=== PATIENT | female | born 1995 | race Caucasian/White ===

== ENCOUNTER → 2022-11-08 | Outpatient (CLI) | payer MEDICAID, SELFPAY ==
[2022-11-08 16:17] LABS: Absolute Neutrophil Count 6.8 X10^3/uL (2.0-7.7); Basophil# 0.04 X10^3/uL; Basophil% 0.4 % (0-1); Eosinophil# 0.03 X10^3/uL; Eosinophils% 0.3 % (0-5); Hematocrit 39.1 % (37-47); Mean Corp Hgb Conc 33.2 g/dL (32-36); Mean Corpuscular Hgb 29.5 pg (27.0-32.0); Mean Corpuscular Volume 88.9 fL (81-99); Mean Platelet Vol. 10.5 fl (6.2-12.0); Monocyte# 0.47 X10^3/uL; Monocyte% 4.9 % (0-10); NRBC Flagged by Analyzer 0 % (0-5); Neutrophil # 6.81 X10^3/uL (2.7-7.7); Neutrophil % 71.1 % (47-70); Platelet Count 279 K/mm3 (150-450); RBC Distribution Width CV 13.5 % (11.6-14.6); RBC Distribution Width SD 43.9 fl (35.1-43.9); White Blood Count 9.6 K/mm3 (4.4-11.0)
[2022-11-08 17:45] LABS: HIV - WCH Non-Reactive (Nonreactive); Hepatitis B Surface Antigen Non-Reactive (Nonreactive); Hepatitis C Antibody Non-Reactive (Nonreactive); Rubella IgG Non-Reactive (Nonreactive); Syphilis Antibodies Non-reactive
[2022-11-10 09:22] LABS: V-Zoster IgG (Immunity) < 135 index (Immune >165)
== END | disposition home or self-care (01) ==
LOC: WOBLAB 15:17
PROVIDERS: Visit Provider Obstetrics & Gynecology
DX: Z34.82 Encounter for supervision of other normal pregnancy, second trimester (principal)
CPT/HCPCS: 36415; 85025; 86703; 86762; 86780; 86787; 86803; 87086; 87088; 87340

== ENCOUNTER → 2022-12-03 | Outpatient (CLI) | payer MEDICAID, SELFPAY ==
--- NOTE | 2022-12-03 12:29 | US_ITS ---
STUDY: SECOND AND THIRD TRIMESTER OBSTETRICAL ULTRASOUND REASON FOR EXAM: Female, 26 years old LMP: 07/17/2022. TECHNIQUE: Transabdominal TECHNICAL QUALITY: Adequate. PRIOR ULTRASOUND: None. FINDINGS: There is a single intrauterine fetus. The fetus is in a breech presentation. There is demonstrated cardiac activity with a heart rate of 150 bpm. There is a normal amniotic fluid volume. The largest amniotic fluid pocket measures 5.3 cm. The amniotic fluid index (IVETTE) is within normal limits. The placenta is posterior in location and is not low lying. There are Grade 0 placental changes. The cervix measures 4.7 cm in length. The bilateral adnexal regions are normal. BIOMETRY: BPD: 4.41 cm: 19 weeks, 2 days HC: 17.2 cm: 19 weeks, 5 days AC: 14.93 cm: 20 weeks, 1 days FL: 3.11 cm: 19 weeks, 4 days CI: 72% FL/BPD: 71% FL/HC: FL/AC: 21% HC/AC: 1.15 age by current US: 19 weeks, 4 days. TIFFANY by current US: 04/25/2023. Estimated weight: 319 grams, +/- 48 grams, 46 %. Age by LMP: 19 weeks, 6 days. TIFFANY by LMP: 04/23/2023. ANATOMY: Gender: Female Cranium: Normal lateral ventricles. Normal choroid plexus. Normal cerebellum. Normal cisterna magna. Normal face, nose and lips. Chest: Normal 4-chamber heart. Abdomen/Pelvis: Normal diaphragm. Normal stomach. Normal abdominal wall. Normal cord insertion. Normal 3 vessel cord. Normal kidneys. Normal bladder. Spine: Normal cervical spine. Normal thoracic spine. Normal lumbar spine. Normal sacrum. Extremities: Normal bilateral upper extremities. Normal bilateral lower extremities. US/OB Anatomy Scan IMPRESSION: Single live uterine gestation with a mean gestational age of 19 weeks and 4 days. Electronically Signed: Junior Rosales MD at 14:56 EST ,
== END | disposition home or self-care (01) ==
LOC: OPUS 12:27 → US 12:33
PROVIDERS: Referring Provider Student in an Organized Health Care Education/Training Program; Visit Provider Student in an Organized Health Care Education/Training Program
DX: Z34.82 Encounter for supervision of other normal pregnancy, second trimester (principal)
CPT/HCPCS: 76805

== ENCOUNTER → 2023-01-10 | Outpatient (CLI) | payer MEDICAID, SELFPAY ==
[2023-01-10 16:35] LABS: Hematocrit 37.4 % (37-47); Hemoglobin 12.3 g/dL (12.0-15.0); Mean Corp Hgb Conc 32.9 g/dL (32-36); Mean Corpuscular Hgb 30.3 pg (27.0-32.0); Mean Corpuscular Volume 92.1 fL (81-99); Mean Platelet Vol. 10.6 fl (6.2-12.0); Platelet Count 287 K/mm3 (150-450); RBC Distribution Width CV 13.6 % (11.6-14.6); RBC Distribution Width SD 45.5 fl (35.1-43.9); Red Blood Count 4.06 M/mm3 (4.2-5.4); White Blood Count 11.1 K/mm3 (4.4-11.0)
[2023-01-10 17:06] LABS: Glucose Challenge Gest 1H 50g 100 mg/dL (70-140)
[2023-01-10 17:26] LABS: Syphilis Antibodies Non-reactive
== END | disposition home or self-care (01) ==
LOC: WOBLAB 15:14
PROVIDERS: Visit Provider Obstetrics & Gynecology
DX: Z34.82 Encounter for supervision of other normal pregnancy, second trimester (principal)
CPT/HCPCS: 36415; 82950; 85027; 86780

== ENCOUNTER → 2023-04-01 | Outpatient (CLI) | payer MEDICAID, SELFPAY ==
[2023-04-01 15:50] LABS: Hematocrit 34.4 % (37-47); Hemoglobin 11.2 g/dL (12.0-15.0); Mean Corp Hgb Conc 32.6 g/dL (32-36); Mean Corpuscular Hgb 29.3 pg (27.0-32.0); Mean Corpuscular Volume 90.1 fL (81-99); Mean Platelet Vol. 10.5 fl (6.2-12.0); Platelet Count 286 K/mm3 (150-450); RBC Distribution Width CV 12.5 % (11.6-14.6); RBC Distribution Width SD 41.1 fl (35.1-43.9); Red Blood Count 3.82 M/mm3 (4.2-5.4); White Blood Count 8.5 K/mm3 (4.4-11.0)
== END | disposition home or self-care (01) ==
LOC: WOBLAB 15:08
PROVIDERS: Visit Provider Obstetrics & Gynecology
DX: Z34.83 Encounter for supervision of other normal pregnancy, third trimester (principal); Z36.85 Encounter for antenatal screening for Streptococcus B
CPT/HCPCS: 36415; 85027; 87077; 87081

== ENCOUNTER 2023-05-01 07:03 | Inpatient (IN) | payer MEDICAID, SELFPAY ==
[2023-05-01] VITALS (36 sets, daily range): BP systolic 90–120; BP diastolic 51–79; PULSE 51–208; TEMP 36.1–36.8; O2SAT 81–100; BMI 27.3
--- NOTE | 2023-05-01 07:29 | PCM.HP.BLA ---
History and Physical Date of Admission: 05/01/23 Chief complaint: Induction of labor at term History present illness: 27-year-old G2, P1 at 41 weeks and 1 day with TIFFANY 04/23/2023 arrives for induction of labor at term. Denies headache, vision changes, chest pain, shortness of breath, nausea vomit, right upper quadrant pain. Obstetric history: G1: 41-week male 7 pounds 3 ounces G2: Current Past medical history: None Medications: vitamin Past surgical history: None Allergies: No known drug allergies Social history: Denies smoking, alcohol use, drug use Family history: Denies history DVT or PE Review of systems: Besides above pertinent positives a full review of systems was performed and found to be negative Physical exam: Vitals: Pulse 71 SPO2 100% on room air General: Normal-appearing no acute distress HEENT: Normocephalic atraumatic no cervical of adenopathy Cardiac/respiratory: No use of accessory muscles, nonlabored breathing Abdomen: Soft, nontender, gravid Extremities: No peripheral edema normal peripheral pulses Psych: Normal affect and demeanor nonpressured speech Labs: Pending Assessment and plan: 27-year-old G2, P1 at 41 weeks and 1 day for induction of labor at term Admit labor and delivery CEFM GBS negative Cytotec 25 mcg vaginally every 4 Routine orders
[2023-05-01] MEDS: 0.9% Saline Lock 10 ML Syringe IV ×2 (08:20→16:50)
[2023-05-01] MEDS: miSOPROStol 25 MCG TABLET VAGINAL ×2 (08:27→12:44)
[2023-05-01 08:34] LABS: Absolute Lymphocyte Count 2.32 X10^3/uL (0.83-4.51); Absolute Neutrophil Count 5.1 X10^3/uL (2.0-7.7); Basophil# 0.04 X10^3/uL; Basophil% 0.5 % (0-1); Eosinophil# 0.04 X10^3/uL; Eosinophils% 0.5 % (0-5); Hematocrit 33.3 % (37-47); Lymphocyte # 2.32 X10^3/ul (0.83-4.51); Lymphocyte % 28.9 % (19-41); Mean Corpuscular Hgb 28.5 pg (27.0-32.0); Mean Corpuscular Volume 86.3 fL (81-99); Mean Platelet Vol. 10.9 fl (6.2-12.0); Monocyte# 0.53 X10^3/uL; Monocyte% 6.6 % (0-10); NRBC Flagged by Analyzer 0 % (0-5); Neutrophil # 5.07 X10^3/uL (2.7-7.7); Neutrophil % 63.3 % (47-70); Platelet Count 255 K/mm3 (150-450); RBC Distribution Width CV 13.2 % (11.6-14.6); Red Blood Count 3.86 M/mm3 (4.2-5.4)
[2023-05-01 09:18] LABS: Syphilis Antibodies Non-reactive
--- NOTE | 2023-05-01 12:35 | PN.OBGYN_ITS ---
Subjective Subjective Patient feels some cramping with contractions otherwise no complaints Objective Data Objective Data Vital Signs: Vital Signs Temp Pulse BP Pulse Ox 98.2 F 75 105/69 100 05/01/23 08:47 05/01/23 09:58 05/01/23 09:58 05/01/23 07:26 Weight: 169 lb 9.6 oz Body Mass Index (BMI) 27.3 Lab / Micro Data 05/01/23 07:50 Labs: Laboratory Results - last 24 hr 05/01/23 07:50: WBC 8.0, RBC 3.86 L, Hgb 11.0 L, Hct 33.3 L, MCV 86.3, MCH 28.5, MCHC 33.0, RDW Std Deviation 41.0, RDW Coeff of Kathi 13.2, Plt Count 255, MPV 10.9, Immature Gran % (Auto) 0.200, Neut % (Auto) 63.3, Lymph % (Auto) 28.9, [place] % (Auto) 6.6, Eos % (Auto) 0.5, Baso % (Auto) 0.5, Absolute Neuts (auto) 5.1, Absolute Lymphs (auto) 2.32, Nucleated RBC % 0, Syphilis Total Ab Non- reactive, Blood Type A POSITIVE, Antibody Screen NEGATIVE Physical Exam Const alert, oriented x3, no apparent distress, average body habitus, healthy appearing and well nourished HEENT normocephalic and moist oral mucous membranes Eyes PERRL Neck full ROM Resp normal respiratory effort, no retractions and no use of accessory muscles GI GI Narrative: Soft, nontender, gravid Narrative: Cervical exam: /-3. AROM clear fluid. FSE attempted to be placed Extremity normal to inspection, full ROM and no clubbing, cyanosis or edema Neuro moves all extremities and no focal motor deficits Psych mental status grossly normal, affect normal, speech normal and activity/motor b ehavior normal Assessment & Plan (1) : PLAN: Patient seen and examined. Status post first dose of Cytotec. Cervical exam as above. Educated patient on AROM, patient states understanding wish to proceed. AROM scant clear fluid. We will proceed with next dose of Cytotec and reevaluate. Educated patient and partner on plan for induction, all questions answered
[2023-05-01] MEDS: Oxytocin 15 Units/NS 250ml 15 UNITS/250 ML IV.SOLN 2 UNITS IV (16:50)
[2023-05-01] MEDS: Lactated Ringers 1,000 ML 50 ML IV (16:50)
[2023-05-01] MEDS: LACTATED RINGERS 500 ML 999 ML IV (17:06)
[2023-05-01] MEDS: fentaNYL-bupivacaine (epidural) 100 ML BAG EPIDURAL (19:31)
[2023-05-01] MEDS: Lactated Ringers 1,000 ML 200 ML IV (22:14)
--- NOTE | 2023-05-01 23:06 | EX.PCM.OBRPT ---
Vaginal Delivery Findings Description of Procedure: Normal spontaneous vaginal delivery of a viable female infant, vertex KAY. Head and shoulders delivered with ease. Cord clamped and cut. Baby handed off to patient. Placenta delivered via cord traction and fundal massage intact. IV oxytocin initiated per protocol. First-degree midline perineal laceration noted and repaired in typical fashion. EBL 300 cc Apgars 8/9
[2023-05-01] MEDS: Oxytocin 15 Units/NS 250ml 15 UNITS/250 ML IV.SOLN 83 UNITS IV (23:26)
[2023-05-02] VITALS (12 sets, daily range): BP systolic 92–109; BP diastolic 55–73; PULSE 56–86; RESP 15–16; TEMP 36.6–37.2; O2SAT 80–98
--- NOTE | 2023-05-02 08:13 | PN.OBGYN_ITS ---
Subjective Subjective No overnight complaints Objective Data Objective Data Vital Signs: Vital Signs Temp Pulse Resp BP Pulse Ox O2 Del Method 98.3 F 68 16 103/55 L 97 Room Air 05/02/23 03:15 05/02/23 03:15 05/02/23 03:15 05/02/23 03:15 05/02/23 03:15 05/02/23 03:15 Oxygen Delivery Method Room Air Weight: 169 lb 9.6 oz Body Mass Index (BMI) 27.3 Intake & Output: Intake and Output for Last 24 Hours 04/30/23 05/01/23 05/02/23 23:59 23:59 23:59 Intake Total 1697.83 / 1697.83 Output Total 300 / 300 Balance 1397.83 / 1397.83 Lab / Micro Data 05/01/23 07:50 Labs: Laboratory Results - last 24 hr 05/01/23 07:50: WBC 8.0, RBC 3.86 L, Hgb 11.0 L, Hct 33.3 L, MCV 86.3, MCH 28.5, MCHC 33.0, RDW Std Deviation 41.0, RDW Coeff of Kathi 13.2, Plt Count 255, MPV 10.9, Immature Gran % (Auto) 0.200, Neut % (Auto) 63.3, Lymph % (Auto) 28.9, [place] % (Auto) 6.6, Eos % (Auto) 0.5, Baso % (Auto) 0.5, Absolute Neuts (auto) 5.1, Absolute Lymphs (auto) 2.32, Nucleated RBC % 0, Syphilis Total Ab Non- reactive, Blood Type A POSITIVE, Antibody Screen NEGATIVE Physical Exam Const alert, oriented x3, no apparent distress, average body habitus, healthy appearing and well nourished HEENT normocephalic and moist oral mucous membranes Eyes PERRL Neck full ROM Resp normal respiratory effort, no retractions and no use of accessory muscles GI GI Narrative: Soft, nontender, uterus firm and below umbilicus Extremity normal to inspection and full ROM Neuro moves all extremities and no focal motor deficits Psych mental status grossly normal, affect normal, speech normal and activity/motor behavior normal Assessment & Plan (1) Vaginal delivery: PLAN: day 1. Breast-feeding. Pain well controlled. Likely discharge home tomorrow
[2023-05-02] MEDS: Acetaminophen 500 MG Tablet 1000 MG PO (12:55)
--- NOTE | 2023-05-02 15:53 | CASEMGMT ---
Social work Labor and Delivery Unit. Sw completed chart review and acknowledges social work consult received. - Sw presented to bedside and met with mother of baby (MOB- Aniya) and father of baby (FOB- Talha). - Sw completed [place] Depression Screen with MOB, her score was a 1. - Sw provided education and support. - Full psychosocial assessment to be entered at later date. - Per sw, no ongoing concerns, ok for MOB and baby to be discharged when medically ready. Mary Gray, FLIGHT ENGINEER, CENTRIFUGAL CASTING MACHINE TENDER
--- NOTE | 2023-05-02 16:28 | NURSING ---
patient educated to MMR and offered vaccination at this time. VIS provided. Patient refuses MMR at this time.
[2023-05-03 01:20] VITALS: BP 96/56; PULSE 60; PULSE 63; RESP 14; O2SAT 97
--- NOTE | 2023-05-03 02:50 | DS.PCM_ITS ---
Discharge Summary Date of Admission: 05/01/23 Date of Discharge: 05/03/23 Summary: Patient arrived on 05/01/2023 for induction of labor at term. Subsequently delivered on 05/01/2023 vaginally. Routine recovery. Discharged home on 05/03/2023 Meaningful Use Info Meaningful Use Diagnoses (Choose all that apply): None applicable Discharge Plan Admission Admit Date/Time: 05/01/23 07:03 Primary Reason for Your Visit: Induction of labor Attending Provider: Ace Nicholas Primary Care Provider: Care Physician,Lou Primary Instructions Additional Instructions / Restrictions: Regular diet. Weightbearing as tolerated. Okay to shower. No intercourse for 6 to 8 weeks. Call if fevers, chills, chest pain, shortness of breath. Follow- up 4 to 6 weeks Discharge Orders/Prescriptions Prescriptions: No Action [id number] 1 mg tablet PO DAILY Referrals / Follow Up: Care Physician,No Primary [Primary Care Provider] - Disposition Disposition (needs filled in before D/C Order can be placed): Home, Self Care
--- NOTE | 2023-05-03 02:51 | PN.OBGYN_ITS ---
Subjective Subjective Resting comfortably in bed Objective Data Objective Data Vital Signs: Vital Signs Temp Pulse Resp BP Pulse Ox O2 Del Method 98.9 F 63 14 96/56 L 97 Room Air 05/02/23 19:51 05/03/23 01:20 05/03/23 01:20 05/03/23 01:20 05/03/23 01:20 05/03/23 01:20 Oxygen Delivery Method Room Air Weight: 169 lb 9.6 oz Body Mass Index (BMI) 27.3 Intake & Output: Intake and Output for Last 24 Hours 05/01/23 05/02/23 05/03/23 23:59 23:59 23:59 Intake Total 1697.83 / 1697.83 250 / 250 Output Total 300 / 300 400 / 400 Balance 1397.83 / 1397.83 -150 / -150 Lab / Micro Data 05/01/23 07:50 Physical Exam Const no apparent distress, average body habitus, healthy appearing and well nourished HEENT normocephalic Resp normal respiratory effort, no retractions and no use of accessory muscles Extremity normal to inspection and no clubbing, cyanosis or edema Neuro no focal motor deficits Assessment & Plan (1) Vaginal delivery: PLAN: day 2. Breast-feeding. Pain well controlled. Okay to discharge home today if okay with pattern hanger
[2023-05-03 08:05] VITALS: BP 99/62; PULSE 68
[2023-05-03 08:09] VITALS: BP 99/62; PULSE 68; RESP 16; TEMP 36.9; O2SAT 100
--- NOTE | 2023-05-05 10:53 | CASEMGMT ---
Social Work Assessment Labor and Delivery Unit Patient Address: [address] [place] [address] Phone number: [phone] Date of Referral: 05/02/23 Time of Referral:? 0830 Referred By: Need for social work consult identified by nursing staff due to maternal history of anxiety. Date of Intervention: ??05/02/23 Time of Intervention:? 1320 Reason for Referral:? maternal history of anxiety Sw completed chart review and acknowledges social work consult due to anxiety. Sw presented to bedside and introduced self to mother of baby (ANNA- Aniya) and father of baby (FOB- Talha) and explained sw role during MOB admission in Labor and Delivery. History obtained from: medical records and mother of baby ANNA and FABIAN. ??? Household composition: Currently residing at the family home are ANNA, FABIAN, older son Silvio and now baby girl, Tamela. Patient's parent/guardian status:?Parents report that they met through mutual friends and have been together for 6 years. While meeting with MOB privately she denied any domestic violence history or intimate partner violence. Medical History: This is MOB second and delivery. Her first baby was born 3 years ago. ANNA received routine care with [facility] during . ANNA delivered baby girl, Tamela Sanchez on 05/01/23 who weighed 7lb 2oz, her apgars were 8 and 9. NO medical issues or concerns at this time. ? Educational Status:? Both parents completed high school, ANNA has an associates degree in [employer], FABIAN went to EMT school. Financial Status: Both parents are gainfully employed outside of the home. FOSallie is an EMT for [employer], ANNA was previously a [employer] but she is going to be switching her career now that baby has been born to a job working from home. Supplies:?? ANNA states that she has been able to obtain all necessary baby items including safe sleep space, car seat, clothes, diapers, wipes and a breast pump. Childcare/Caregiver(s):? ANNA reports that she will be will be the primary caregiver to baby, when they need help with childcare they have several aunts that will be able to help out. Transportation:?Both parents have drivers license and have dependable transportation. No transportation barriers at this time. ? Programs/Agencies Involved: ANNA denies linkage to any resources or community supports at this time aside from [employer] insurance. . Sw provided information on Help Me Grow and the benefits that Help Me Grow can provide to moms and babies. Children Services/Legal Issues:?No history with Children Services reported, no concerns to warrant referral at this time. ?? Behavioral Health Issues: ??Mental Health History:??FABIAN states that he has been diagnosed with PTSD, anxiety and depression. He is connected to counseling supports that he meets with regularly. Sw provided education to FABIAN on fathers and their experiences with baby blues/ depression following the new of a baby. FABIAN expressed understanding. ANNA stated that she has been diagnosed with anxiety. ANNA is not prescribed medications at this time but is also connected to an outpatient therapist that she can talk to as often as necessary. Sw assessed for self harm, MOB denies current or former SI or self harm. Sw met with MOB privately, MOB completed [place] Depression Screen and scored a 1. Sw provided education on the results of assessment and encouraged MOB to utilize helpful and appropriate coping skills. MOB expressed understanding. ? Substance Use History: MOB denies substance use history. Family History: MOB denies family mental health and substance use history. FABIAN states that his mom does have a substance use problem, he is not sure what substances she has a history with. ? Drug Screens: No urine screens observed in chart review. Family/Social Stressors:? ANNA does not identify any stressors or issues at this time. Parents deny legal involvement at this time. Support Systems: Parents state that they have family supports found in aunts and dad has some friends who are very supportive for him. Depression/Shaken Baby/Safe Sleeping: Sw provided parents with education and literature on post depression and baby blues. Sw educated parents on shaken baby prevention and ABCs of safe sleep. Parents expressed understanding of these issues. ?.?? ASSESSMENT:? Parents talkative and appropriate during social work assessment. Parents supportive to one another and were observed providing loving care to baby. Support and resources provided. Parents were open and receptive to sw involvement and support. ??? PLAN:? MOB and baby to be discharged to home when medically readay. ?No other services requested or indicated. Mary Gray, COMPLIANCE NURSE, CONCRETE MIXING PLANT SUPERINTENDENT
== END 2023-05-03 10:50 | disposition home or self-care (01) | DRG 560 ==
PROVIDERS: Admitting Provider Obstetrics & Gynecology; Referring Provider Obstetrics & Gynecology; Visit Provider Obstetrics & Gynecology
DX: O48.0 Post-term pregnancy (principal); Z37.0 Single live birth; O70.0 First degree perineal laceration during delivery; Z3A.41 41 weeks gestation of pregnancy
CPT/HCPCS: 59025; 59050; 85025; 86780; 86850; 86900; 86901; 99221; J7120; A4216; G0378; J3490